=== PATIENT | male | born 1980 | race African-American/Black ===

== ENCOUNTER 2016-11-20 22:40 | Emergency (ER) | payer SELFPAY ==
[2016-11-20] MEDS ORDERED: Lidocaine 1% PF 5 ML VIAL ONE (23:47)
[2016-11-20] MEDS ORDERED: cefTRIAXone\\ROCEPHIN 1 GM VIAL ONE (23:47)
== END 2016-11-21 00:08 | disposition home or self-care (01) ==
LOC: ERS 22:40
DX: K12.2 Cellulitis and abscess of mouth (principal); K05.10 Chronic gingivitis, plaque induced; I11.0 Hypertensive heart disease with heart failure; I50.9 Heart failure, unspecified; J45.909 Unspecified asthma, uncomplicated; F41.9 Anxiety disorder, unspecified; F32.9 Major depressive disorder, single episode, unspecified; F17.210 Nicotine dependence, cigarettes, uncomplicated
CPT/HCPCS: 96372; J0696; J2001